=== PATIENT | male | born 1945 | race Caucasian/White ===

== ENCOUNTER 2024-03-17 11:28 | Inpatient (IN) ==
[~2024-03-17 11:28] MED LIST: NS 0.45% 1000 ml BAG 1,000 ML IV SCH; Naloxone 0.4 mg VIAL 0.4 mg/ml 1 ml VIAL IV PRN; fentaNYL 100 mcg/2 ml 50 MCG/ML VIAL IV PRN
[2024-03-17] MEDS ORDERED: ceFAZolin 2 GM PREMIX 2 GM/50 ML BAG ONE (11:50)
[2024-03-17 12:05] LABS: Rapid COVID-19 Molecular Undetected (Undetected)
[2024-03-17] MEDS: Buffered Lidocaine 1% SYRIN 1 ml INTRADERM ONE (12:10)
[2024-03-17] MEDS: Lactated Ringers 1000 ml BAG 1,000 ML IV SCH ×2 (12:11→20:40)
[2024-03-17] MEDS ORDERED: fentaNYL 100 mcg/2 ml 50 MCG/ML VIAL ONE (13:30)
[2024-03-17] MEDS ORDERED: Dexamethasone IV 4 MG/ML VIAL 1 ml VIAL ONE (13:31)
[2024-03-17] MEDS ORDERED: Midazolam 2 mg/2 ml VIAL 1 mg/ml 2 ml VIAL (2 mg) ONE (13:31)
[2024-03-17] MEDS ORDERED: Famotidine IV 10 MG/ML 2 ml VIAL (20 mg) ONE (13:31)
[2024-03-17] MEDS ORDERED: ROPIVACAINE 5 MG/ML 30 ML BTL (0.5%) ONE (13:31)
[2024-03-17] MEDS ORDERED: Ondansetron 4 mg VIAL 2 MG/ML 2 ml VIAL ONE ×2 (14:02→17:51)
[2024-03-17] MEDS ORDERED: Bupivacaine 0.5% SDV PF 30ML VIAL ONE (14:38)
[2024-03-17] MEDS ORDERED: Phenylephrine 40 mcg/mL 10mL (400mcg) SYRINGE ONE (14:50)
[2024-03-17] MEDS ORDERED: Propofol 10 MG/ML 20 ML BTL ONE (16:18)
[2024-03-17] MEDS ORDERED: Acetaminophen IV 1 GM/100ML 1,000 MG/100 ML BAG IV ONE (17:51)
[2024-03-17] MEDS: Ondansetron 4 mg VIAL 2 MG/ML 2 ml VIAL IV PRN ×2 (17:53→23:45)
[2024-03-17] MEDS: Acetaminophen IV 1 GM/100ML 1,000 MG/100 ML BAG IV ONE (17:53)
[2024-03-17] MEDS: Magnesium Hydroxide LIQ 30 ML UDC PO SCH (21:26)
[2024-03-17] MEDS: TACROLIMUS 0.03% TOPICAL SCH (22:43)
[2024-03-17] MEDS: ceFAZolin 2 GM PREMIX 2 GM/50 ML BAG IV SCH (23:34)
[2024-03-18] MEDS: Calcium Carb (TUMS) 500 mg CHEW TAB PO PRN (07:46)
[2024-03-18 08:49] LABS: Hematocrit 38.7 % (38-53); Hemoglobin 12.9 g/dL (13.2-16.3); Mean Platelet Volume 8.2 fL (7.5-11.2); Platelet Count 186 10^3/uL (150-450)
[2024-03-18] MEDS: Vitamin THERAPEUTIC TAB PO SCH (09:25)
[2024-03-18 09:36] LABS: Calcium 9.1 mg/dL (8.6-10.3); Creatinine, Serum 1.31 mg/dL (0.67-1.17); Potassium 4.4 mmol/L (3.5-5.0); eGFR CKD-EPI 56.4 (>60)
[2024-03-18] MEDS: Simethicone SUSP ORALSYR 66.66 MG/ML PO SCH (11:30)
[2024-03-18] MEDS: Scopolamine 1 mg/72hr PATCH TRANSDERM SCH (14:34)
[2024-03-18] MEDS: Cholecalciferol (VIT D3) 1,000 unit TAB PO SCH (15:54)
[2024-03-18] MEDS: Lactulose 30 ml UDC PO PRN (19:59)
[2024-03-18] MEDS: Morphine 2 MG/ML SYRINGE IV PRN (22:08)
[2024-03-18] MEDS: Ondansetron ODT 4 mg TAB 4 MG TAB PO PRN (22:08)
[2024-03-19] MEDS: Magnesium Hydroxide LIQ 30 ML UDC PO PRN (01:47)
[2024-03-19 07:08] LABS: Hematocrit 36.1 % (38-53); Hemoglobin 12.2 g/dL (13.2-16.3); Mean Platelet Volume 8.5 fL (7.5-11.2); Platelet Count 180 10^3/uL (150-450)
[2024-03-19 10:19] LABS: Calcium 9.2 mg/dL (8.6-10.3); Creatinine, Serum 1.22 mg/dL (0.67-1.17); Potassium 4.4 mmol/L (3.5-5.0); eGFR CKD-EPI 61.4 (>60)
[2024-03-20 14:19] LABS: Calcium 8.9 mg/dL (8.6-10.3); Creatinine, Serum 1.98 mg/dL (0.67-1.17); Potassium 4.1 mmol/L (3.5-5.0); eGFR CKD-EPI 34.4 (>60)
[2024-03-20] MEDS: Iodixanol 320 (CONTRAST) 100 ML SDV IV ONE (16:21)
[2024-03-20] MEDS: Lactated Ringers 1000 ml BAG 1,000 ML IV SCH (17:10)
[2024-03-20] MEDS: Lidocaine PATCH 5% PATCH TRANSDERM SCH (20:21)
[2024-03-21] MEDS: Albuterol/Ipratropium NEB.SOL (2.5/0.5 MG) 3 ML NEB.SOLN INH PRN (01:13)
[2024-03-21] MEDS: methylPREDNISolone SOD SUCC 40 mg/ml 1 ml VIAL IV ONE (01:16)
[2024-03-21] MEDS: Azithromycin 500 mg/250 ml NS 500 MG/250 ML BAG IVPB SCH (01:45)
[2024-03-21] MEDS: Iodixanol 320 (CONTRAST) 100 ML SDV IV SCH (04:24)
[2024-03-21] MEDS: Benzocaine/Butamben/Tetracain (CETACAINE - SINGLE USE) 5 gm TOPICAL ONE ×2 (05:30→10:30)
[2024-03-21 08:23] LABS: ABS Lymphocytes 0.2 10^3/uL (1.0-4.8); ABS Monocytes 0.4 10^3/uL (0.0-1.1); ABS Neutrophils 6.6 10^3/uL (1.5-7.6); ABS Nucleated RBC 0.01 10^3/ul; Hematocrit 33.3 % (38-53); Hemoglobin 11.1 g/dL (13.2-16.3); Lymphocyte % 2.5 %; Mean Corpuscular Hemoglobin 29.5 pg (27-33); Mean Corpuscular Hgb Conc 33.3 g/dL (31-36); Mean Corpuscular Volume 88.8 fL (80-97); Mean Platelet Volume 8.9 fL (7.5-11.2); Nucleated Red Blood Cells % 0.1 %/100WBC (0.0-0.8); Platelet Count 227 10^3/uL (150-450); Red Blood Count 3.76 10^6/uL (4.06-5.63); Red Cell Distribution Width 13.5 % (12-17); White Blood Count 7.2 10^3/uL (3.6-10.2)
[2024-03-21 08:32] LABS: Albumin 3.8 g/dL (3.2-5.2); Albumin/Globulin Ratio 1.4 (1-3); Calcium 8.8 mg/dL (8.6-10.3); Creatinine, Serum 2.32 mg/dL (0.67-1.17); Globulin 2.7 g/dL (2-4); Potassium 5.1 mmol/L (3.5-5.0); Total Bilirubin 0.8 mg/dL (0.2-1.0); Total Protein 6.5 g/dL (6.4-8.9); eGFR CKD-EPI 28.4 (>60)
[2024-03-21 08:51] LABS: Calcium 8.6 mg/dL (8.6-10.3); Creatinine, Serum 2.28 mg/dL (0.67-1.17); Potassium 5.1 mmol/L (3.5-5.0)
[2024-03-21 08:56] LABS: Hematocrit 32.9 % (38-53); Hemoglobin 11.1 g/dL (13.2-16.3); Platelet Count 224 10^3/uL (150-450)
[2024-03-21] MEDS: LORazepam 2 mg VIAL 1 ml IV PUSH ONE (08:57)
[2024-03-21] MEDS: Enoxaparin 40 MG/0.4 ML SYR SUBCUT SCH (08:59)
[2024-03-21] MEDS: Pantoprazole VIAL 40 MG VIAL IV SCH (08:59)
[2024-03-21] MEDS: Acetaminophen IV 1 GM/100ML 1,000 MG/100 ML BAG IV PRN (09:07)
[2024-03-21] MEDS ORDERED: Sulfur Hexaflouride MICROSPHR 25 MG VIAL IV PRN (09:55)
[2024-03-21] MEDS ORDERED: Phenol 1.4% Throat Spray BTL MT PRN (09:56)
[2024-03-21] MEDS ORDERED: Atropine 1 MG/ML INJ 1 ML VIAL IV PUSH PRN (10:42)
[2024-03-21 10:45] LABS: Urine Appearance Clear; Urine Bilirubin Negative (Negative); Urine Blood Negative (Negative); Urine Color Yellow; Urine Glucose Negative (Negative); Urine Ketones Negative (Negative); Urine Nitrite Negative (Negative); Urine Protein Trace (Negative); Urine Specific Gravity >1.050 (1.002-1.030); Urine Urobilinogen Negative (Negative); Urine pH 5.5 (5.0-8.0)
[2024-03-21] MEDS: Lidocaine 2% JELLY 6 ML Topical TOPICAL ONE ×2 (10:48→12:08)
[2024-03-21] MEDS: Atropine 0.1 MG/ML 10 ml SYR (1 mg) ONE (13:19)
[2024-03-21] MEDS: Neostigmine Methylsulfate 3 MG/3 ML SYRINGE IV ONE (13:24)
[2024-03-21] MEDS: Atropine 0.1 MG/ML 10 ml SYR (1 mg) IV PUSH ONE (15:13)
[2024-03-21] MEDS ORDERED: Dextrose 50% Syringe 50 ml 25 GM/50 ML SYRINGE IV PUSH PRN (17:06)
[2024-03-21 19:14] LABS: Calcium 8.4 mg/dL (8.6-10.3); Creatinine, Serum 2.93 mg/dL (0.67-1.17); eGFR CKD-EPI 21.5 (>60)
[2024-03-21] MEDS: NS 0.9% 500 ml BAG 500 ML IV ONE (19:54)
[2024-03-21 20:00] LABS: PCO2 Arterial 47 mmHg (35-45); PO2 Arterial 69 mmHg (80-100)
[2024-03-21] MEDS: Haloperidol 5 mg/ml SDV IV/IM 5 MG/ML AMP IV SLOW PU PRN (23:40)
[2024-03-22] MEDS: Haloperidol 5 mg/ml SDV IV/IM 5 MG/ML AMP ONE (00:08)
[2024-03-22] MEDS: Haloperidol 5 mg/ml SDV IV/IM 5 MG/ML AMP IV SLOW PU PRN (03:54)
[2024-03-22 04:50] LABS: Hemoglobin 10.5 g/dL (13.2-16.3); Mean Platelet Volume 7.9 fL (7.5-11.2); Platelet Count 201 10^3/uL (150-450)
[2024-03-22 05:48] LABS: Calcium 7.9 mg/dL (8.6-10.3); Creatinine, Serum 3.51 mg/dL (0.67-1.17); Potassium 5.1 mmol/L (3.5-5.0); eGFR CKD-EPI 17.3 (>60)
[2024-03-22] MEDS: Heparin 5000 UNITS/ML 1 mL VIAL SUBCUT SCH (08:26)
[2024-03-22] MEDS: NS 0.9% 1000 ml BAG 500 ML IV SCH (09:19)
[2024-03-22] MEDS: Mineral Oil ENEMA 118 ML/BOTTLE BOTTLE PR ONE (10:06)
[2024-03-22 10:48] LABS: Mean Corpuscular Hemoglobin 29.9 pg (27-33); Mean Corpuscular Hgb Conc 33.2 g/dL (31-36); Mean Corpuscular Volume 90.2 fL (80-97); Red Blood Count 3.48 10^6/uL (4.06-5.63); Red Cell Distribution Width 13.7 % (12-17); White Blood Count 4.1 10^3/uL (3.6-10.2)
[2024-03-22 11:00] LABS: Albumin 3.3 g/dL (3.2-5.2); Albumin/Globulin Ratio 1.3 (1-3); Direct Bilirubin 0.2 mg/dL (0.03-0.18); Globulin 2.5 g/dL (2-4); Indirect Bilirubin 0.5 mg/dL (0.3-1.0); Total Bilirubin 0.7 mg/dL (0.2-1.0); Total Protein 5.8 g/dL (6.4-8.9)
[2024-03-22] MEDS: Erythromycin Lactobionate IV 250 MG in NS 0.9% 100 ml BAG 100 ML IVPB SCH (11:22)
[2024-03-22] MEDS: Sulfur Hexaflouride MICROSPHR 25 MG VIAL IV PRN (11:48)
[2024-03-22] MEDS: Neostigmine Methylsulfate 3 MG/3 ML SYRINGE IV ONE (12:03)
[2024-03-22 15:06] LABS: Calcium 7.7 mg/dL (8.6-10.3); Creatinine, Serum 3.81 mg/dL (0.67-1.17); eGFR CKD-EPI 15.7 (>60)
[2024-03-22] MEDS ORDERED: Rocuronium 50 mg VIAL 10 mg/ml 5 ml VIAL (50 mg) ONE (15:35)
[2024-03-22] MEDS ORDERED: Etomidate 40 mg/20 ml (2 MG/ML) 20 ml VIAL (40 mg) ONE (15:35)
[2024-03-22] MEDS: Propofol 10 mg/ml 100 ML BTL 1,000 MG/100 ML BTL IV SCH (15:45)
[2024-03-22] MEDS: Propofol 10 mg/ml 100 ML BTL 1,000 MG/100 ML BTL ONE (16:22)
[2024-03-22] MEDS: Rocuronium 50 mg VIAL 10 mg/ml 5 ml VIAL (50 mg) ONE (16:23)
[2024-03-22] MEDS: NS 0.9% 500 ml BAG 500 ML IV ONE ×2 (16:36→19:53)
[2024-03-22] MEDS ORDERED: fentaNYL 100 mcg/2 ml 50 MCG/ML VIAL ONE (16:50)
[2024-03-22] MEDS ORDERED: Midazolam 10 mg/10 ml VIAL 1 mg/ml 10 ml VIAL (10 mg) ONE (16:50)
[2024-03-22] MEDS: Phenylephrine 40 mcg/mL 10mL (400mcg) SYRINGE IV PRN ×2 (16:59→17:23)
[2024-03-22] MEDS: Midazolam 5 mg/5 ml VIAL 1 mg/ml 5 ml VIAL (5 mg) ONE (17:02)
[2024-03-22] MEDS: Midazolam 5 mg/5 ml VIAL 1 mg/ml 5 ml VIAL (5 mg) IV SLOW PU ONE (17:02)
[2024-03-22] MEDS ORDERED: Phenylephrine 40 mcg/mL 10mL (400mcg) SYRINGE ONE (17:29)
[2024-03-22] MEDS: Norepinephrine 4 MG/250mL D5W 4,000 MCG/250 ML BAG IV SCH (17:34)
[2024-03-22] MEDS: Chlorhexidine MOUTHWASH 0.12% 15 ML UDC TOPICAL SCH (18:00)
[2024-03-22] MEDS: Norepinephrine 4 MG/250mL D5W 4,000 MCG/250 ML BAG IV ONE (18:56)
[2024-03-22] MEDS ORDERED: Phenylephrine 40 mcg/mL 10mL (400mcg) SYRINGE IV PRN (18:59)
[2024-03-22] MEDS: Phenylephrine 40 mcg/mL 10mL (400mcg) SYRINGE ONE ×3 (19:15→19:16)
[2024-03-22] MEDS ORDERED: Enoxaparin 30 MG/0.3 ML SYR SUBCUT SCH (21:00)
[2024-03-22] MEDS: DOPamine 800 MG/250 ML IVPREMX 800 MG/250 ML ML CENTR SCH (23:32)
[2024-03-23 05:03] LABS: ABS Eosinophils 0.2 10^3/uL (0.0-0.5); ABS Lymphocytes 0.3 10^3/uL (1.0-4.8); ABS Monocytes 0.3 10^3/uL (0.0-1.1); ABS Neutrophils 2.2 10^3/uL (1.5-7.6); Eosinophil % 6.5 %; Hematocrit 26.3 % (38-53); Hemoglobin 8.8 g/dL (13.2-16.3); Lymphocyte % 11.7 %; Mean Corpuscular Hemoglobin 29.9 pg (27-33); Mean Corpuscular Hgb Conc 33.7 g/dL (31-36); Mean Corpuscular Volume 88.8 fL (80-97); Mean Platelet Volume 7.7 fL (7.5-11.2); Nucleated Red Blood Cells % 0.1 %/100WBC (0.0-0.8); Platelet Count 178 10^3/uL (150-450); Red Blood Count 2.96 10^6/uL (4.06-5.63); Red Cell Distribution Width 13.3 % (12-17)
[2024-03-23 06:05] LABS: Calcium 7.1 mg/dL (8.6-10.3); Creatinine, Serum 3.27 mg/dL (0.67-1.17); Magnesium 3.1 mg/dL (1.9-2.7); Phosphorus 4.2 mg/dL (2.5-5.0); Potassium 4.1 mmol/L (3.5-5.0); eGFR CKD-EPI 18.8 (>60)
[2024-03-23] MEDS: Erythromycin Lactobionate IV 250 MG in NS 0.9% 100 ml BAG 100 ML IVPB SCH (06:08)
[2024-03-23] MEDS: cefTRIAXone 1 gm/50 mL D5W 1 GM/50 ML BAG IV SCH (08:52)
[2024-03-23 14:11] LABS: ABS Eosinophils 0.2 10^3/uL (0.0-0.5); ABS Lymphocytes 0.3 10^3/uL (1.0-4.8); ABS Monocytes 0.5 10^3/uL (0.0-1.1); ABS Neutrophils 4.9 10^3/uL (1.5-7.6); Eosinophil % 3.3 %; Hematocrit 29.4 % (38-53); Hemoglobin 9.8 g/dL (13.2-16.3); Lymphocyte % 5.3 %; Mean Corpuscular Hemoglobin 29.7 pg (27-33); Mean Corpuscular Hgb Conc 33.4 g/dL (31-36); Mean Platelet Volume 7.9 fL (7.5-11.2); Nucleated Red Blood Cells % 0.1 %/100WBC (0.0-0.8); Platelet Count 198 10^3/uL (150-450); Red Blood Count 3.31 10^6/uL (4.06-5.63); Red Cell Distribution Width 13.4 % (12-17)
[2024-03-23] MEDS: Polyethylene Glycol 3350 17 GM PACKET PO SCH (20:47)
[2024-03-23] MEDS: Albuterol/Ipratropium NEB.SOL (2.5/0.5 MG) 3 ML NEB.SOLN INH ONE (23:07)
[2024-03-24 04:55] LABS: ABS Eosinophils 0.2 10^3/uL (0.0-0.5); ABS Lymphocytes 0.5 10^3/uL (1.0-4.8); ABS Monocytes 0.5 10^3/uL (0.0-1.1); ABS Neutrophils 4.4 10^3/uL (1.5-7.6); Hematocrit 27.4 % (38-53); Hemoglobin 9.3 g/dL (13.2-16.3); Lymphocyte % 8.1 %; Mean Corpuscular Hemoglobin 30.2 pg (27-33); Mean Corpuscular Volume 88.8 fL (80-97); Mean Platelet Volume 7.4 fL (7.5-11.2); Nucleated Red Blood Cells % 0.1 %/100WBC (0.0-0.8); Platelet Count 186 10^3/uL (150-450); Red Blood Count 3.09 10^6/uL (4.06-5.63); Red Cell Distribution Width 13.8 % (12-17); White Blood Count 5.6 10^3/uL (3.6-10.2)
[2024-03-24 05:31] LABS: Calcium 7.7 mg/dL (8.6-10.3); Creatinine, Serum 1.82 mg/dL (0.67-1.17); Phosphorus 3.1 mg/dL (2.5-5.0); Potassium 3.7 mmol/L (3.5-5.0)
[2024-03-24] MEDS: Erythromycin Lactobionate IV 250 MG in NS 0.9% 100 ml BAG 100 ML IVPB SCH (11:46)
[2024-03-25 06:09] LABS: ABS Eosinophils 0.2 10^3/uL (0.0-0.5); ABS Lymphocytes 0.6 10^3/uL (1.0-4.8); ABS Monocytes 0.4 10^3/uL (0.0-1.1); ABS Neutrophils 4.6 10^3/uL (1.5-7.6); Hemoglobin 10.1 g/dL (13.2-16.3); Lymphocyte % 9.3 %; Mean Corpuscular Hemoglobin 30.2 pg (27-33); Mean Corpuscular Hgb Conc 33.7 g/dL (31-36); Mean Corpuscular Volume 89.7 fL (80-97); Mean Platelet Volume 7.5 fL (7.5-11.2); Platelet Count 193 10^3/uL (150-450); Red Blood Count 3.35 10^6/uL (4.06-5.63); Red Cell Distribution Width 13.4 % (12-17); White Blood Count 5.9 10^3/uL (3.6-10.2)
[2024-03-25 06:28] LABS: Calcium 7.9 mg/dL (8.6-10.3); Creatinine, Serum 1.34 mg/dL (0.67-1.17); Magnesium 2.7 mg/dL (1.9-2.7); Potassium 3.7 mmol/L (3.5-5.0); eGFR CKD-EPI 54.9 (>60)
[2024-03-25] MEDS: Polyethylene Glycol 3350 17 GM PACKET PO SCH (18:38)
[2024-03-25] MEDS ORDERED: Polyethylene Glycol 3350 17 GM PACKET PO PRN (23:10)
[2024-03-26 06:03] LABS: ABS Eosinophils 0.2 10^3/uL (0.0-0.5); ABS Lymphocytes 0.5 10^3/uL (1.0-4.8); ABS Monocytes 0.7 10^3/uL (0.0-1.1); Eosinophil % 2.5 %; Hematocrit 31.9 % (38-53); Hemoglobin 10.5 g/dL (13.2-16.3); Lymphocyte % 7.2 %; Mean Corpuscular Hemoglobin 29.5 pg (27-33); Mean Corpuscular Hgb Conc 32.9 g/dL (31-36); Mean Corpuscular Volume 89.7 fL (80-97); Mean Platelet Volume 7.5 fL (7.5-11.2); Platelet Count 256 10^3/uL (150-450); Red Blood Count 3.55 10^6/uL (4.06-5.63); Red Cell Distribution Width 13.3 % (12-17); White Blood Count 7.5 10^3/uL (3.6-10.2)
[2024-03-26 06:19] LABS: Calcium 8.1 mg/dL (8.6-10.3); Creatinine, Serum 1.17 mg/dL (0.67-1.17); Magnesium 2.4 mg/dL (1.9-2.7); Phosphorus 2.4 mg/dL (2.5-5.0); Potassium 3.8 mmol/L (3.5-5.0); eGFR CKD-EPI 64.6 (>60)
[2024-03-26] MEDS: Metoclopramide 5 MG/ML VIAL (10 mg) IV SLOW PU SCH ×2 (15:10→21:46)
[2024-03-26] MEDS: PPN (PERIPHERAL) 24 HR with D10W 1000 ml BAG 1,000 ML, Amino Acid Infusion 10% 850 ML, ... IV SCH (16:54)
[2024-03-26] MEDS ORDERED: Lorazepam PYXIS KEY PRN (18:21)
[2024-03-26] MEDS: Labetalol IV 5 MG/ML 20 ml VIAL IV PUSH ONE (18:45)
[2024-03-26 19:43] LABS: ALT 49 U/L (7-52); Albumin 3.4 g/dL (3.2-5.2); Albumin/Globulin Ratio 1.4 (1-3); Alkaline Phosphatase 61 U/L (35-149); Anion Gap 12 mmol/L (2-16); Blood Urea Nitrogen 27 mg/dL (6-24); CO2 Carbon Dioxide 24 mmol/L (22-32); Calcium 8.3 mg/dL (8.6-10.3); Chloride 105 mmol/L (101-111); Cholesterol 94 mg/dL; Creatinine, Serum 1.06 mg/dL (0.67-1.17); Globulin 2.4 g/dL (2-4); Glucose 148 mg/dL (70-100); Prealbumin 8 mg/dL (18-38); Sodium 141 mmol/L (135-145); Total Bilirubin 0.8 mg/dL (0.2-1.0); Total Protein 5.8 g/dL (6.4-8.9); Triglycerides 167 mg/dL; eGFR CKD-EPI 72.7 (>60)
[2024-03-26] MEDS: hydrALAZINE 20 mg/ml 1 ML Vial IV IV SLOW PU ONE (20:13)
[2024-03-26] MEDS: hydrALAZINE 20 mg/ml 1 ML Vial IV IV SLOW PU PRN (21:49)
[2024-03-26 22:33] LABS: Magnesium 2.1 mg/dL (1.9-2.7); Phosphorus 2.1 mg/dL (2.5-5.0)
[2024-03-26] MEDS: LORazepam 2 mg VIAL 1 ml IV PUSH PRN (23:50)
[2024-03-27] MEDS ORDERED: Lorazepam PYXIS KEY PRN (08:08)
[2024-03-27 09:48] LABS: Calcium 8.7 mg/dL (8.6-10.3); Creatinine, Serum 0.98 mg/dL (0.67-1.17); Phosphorus 1.6 mg/dL (2.5-5.0); Potassium 3.6 mmol/L (3.5-5.0); eGFR CKD-EPI 79.9 (>60)
[2024-03-27] MEDS ORDERED: hydrALAZINE 20 mg/ml 1 ML Vial IV IV SLOW PU SCH (11:00)
[2024-03-27] MEDS: hydrALAZINE 20 mg/ml 1 ML Vial IV IV SLOW PU SCH (12:14)
[2024-03-27] MEDS: Potassium Phosphate IV 15 MMOL in NS 0.9% 250 ml 250 ML IVPB ONE (12:17)
[2024-03-27] MEDS: Labetalol IV 5 MG/ML 20 ml VIAL IV PUSH SCH (16:10)
[2024-03-27] MEDS: LORazepam 2 mg VIAL 1 ml IV PUSH PRN (22:29)
[2024-03-28 06:01] LABS: Hematocrit 32.5 % (38-53); Hemoglobin 10.8 g/dL (13.2-16.3); Mean Corpuscular Hemoglobin 29.8 pg (27-33); Mean Corpuscular Hgb Conc 33.2 g/dL (31-36); Mean Corpuscular Volume 89.9 fL (80-97); Mean Platelet Volume 7.1 fL (7.5-11.2); Platelet Count 378 10^3/uL (150-450); Red Blood Count 3.61 10^6/uL (4.06-5.63); Red Cell Distribution Width 13.9 % (12-17); White Blood Count 14.8 10^3/uL (3.6-10.2)
[2024-03-28 07:23] LABS: Albumin 3.5 g/dL (3.2-5.2); Albumin/Globulin Ratio 1.6 (1-3); Globulin 2.2 g/dL (2-4); Magnesium 1.9 mg/dL (1.9-2.7); Phosphorus 2.9 mg/dL (2.5-5.0); Potassium 3.7 mmol/L (3.5-5.0); Total Bilirubin 0.7 mg/dL (0.2-1.0); Total Protein 5.7 g/dL (6.4-8.9)
[2024-03-28 07:52] LABS: ABS Basophils 0.1 10^3/uL (0.0-0.1); ABS Eosinophils 0.5 10^3/uL (0.0-0.5); ABS Lymphocytes 0.8 10^3/uL (1.0-4.8); ABS Monocytes 1.2 10^3/uL (0.0-1.1); ABS Neutrophils 12.3 10^3/uL (1.5-7.6); ABS Nucleated RBC 0.01 10^3/ul; Eosinophil % 3.4 %; Lymphocyte % 5.6 %
[2024-03-28] MEDS: Polyethylene Glycol 3350 17 GM PACKET PO ONE (12:32)
[2024-03-28 18:32] LABS: Urine Appearance Turbid; Urine Bilirubin Negative (Negative); Urine Blood 1+ (Negative); Urine Color Yellow; Urine Glucose 1+ (>=70 mg/dL) (Negative); Urine Ketones Negative (Negative); Urine Nitrite Negative (Negative); Urine Protein 1+ (>=30 mg/dL) (Negative); Urine Specific Gravity 1.022 (1.002-1.030); Urine Urobilinogen Negative (Negative); Urine pH 5.5 (5.0-8.0)
[2024-03-28 18:34] LABS: Urine Bacteria Absent /HPF (Absent); Urine Granular Casts Present /LPF (Absent); Urine Red Blood Cell 3+(>10/hpf) /HPF (0-Trace); Urine White Blood Cell 1+(6-10/hpf) /HPF (0-Trace)
[2024-03-28] MEDS: Tacrolimus 0.03% OINT(NF) 30 GM TUBE TOPICAL SCH (22:06)
[2024-03-29 07:06] LABS: Albumin 3.3 g/dL (3.2-5.2); Albumin/Globulin Ratio 1.5 (1-3); Calcium 8.8 mg/dL (8.6-10.3); Creatinine, Serum 0.93 mg/dL (0.67-1.17); Globulin 2.2 g/dL (2-4); Magnesium 1.7 mg/dL (1.9-2.7); Phosphorus 2.9 mg/dL (2.5-5.0); Potassium 3.6 mmol/L (3.5-5.0); Total Bilirubin 0.7 mg/dL (0.2-1.0); Total Protein 5.5 g/dL (6.4-8.9); eGFR CKD-EPI 85.1 (>60)
[2024-03-29 07:34] LABS: Hematocrit 31.9 % (38-53); Hemoglobin 10.5 g/dL (13.2-16.3); Mean Corpuscular Hemoglobin 29.5 pg (27-33); Mean Corpuscular Hgb Conc 32.9 g/dL (31-36); Mean Corpuscular Volume 89.6 fL (80-97); Mean Platelet Volume 7.8 fL (7.5-11.2); Platelet Count 342 10^3/uL (150-450); Red Blood Count 3.56 10^6/uL (4.06-5.63); White Blood Count 12.8 10^3/uL (3.6-10.2)
[2024-03-29 07:54] LABS: ABS Basophils 0.1 10^3/uL (0.0-0.1); ABS Eosinophils 0.4 10^3/uL (0.0-0.5); ABS Lymphocytes 0.8 10^3/uL (1.0-4.8); ABS Monocytes 1.1 10^3/uL (0.0-1.1); ABS Neutrophils 10.5 10^3/uL (1.5-7.6); Eosinophil % 3.1 %; Lymphocyte % 6.4 %
[2024-03-29] MEDS ORDERED: PPN (PERIPHERAL) 24 HR with D10W 1000 ml BAG 1,000 ML, Amino Acid Infusion 10% 850 ML, ... IV SCH (17:00)
[2024-03-29] MEDS: Magnesium Sulfate 2 gm BAG 2 GM/50 ML BAG IVPB ONE (17:36)
[2024-03-29] MEDS: KCL 20 MEQ/100 ML IVPREMIX 20 MEQ/100 ML BAG IV ONE (17:37)
[2024-03-29] MEDS: Erythromycin Lactobionate IV 250 MG in NS 0.9% 100 ml BAG 100 ML IVPB SCH (20:35)
[2024-03-30 06:34] LABS: ABS Basophils 0.1 10^3/uL (0.0-0.1); ABS Eosinophils 0.3 10^3/uL (0.0-0.5); ABS Lymphocytes 0.8 10^3/uL (1.0-4.8); ABS Neutrophils 7.9 10^3/uL (1.5-7.6); Hematocrit 28.5 % (38-53); Hemoglobin 9.5 g/dL (13.2-16.3); Lymphocyte % 7.7 %; Mean Corpuscular Hemoglobin 30.1 pg (27-33); Mean Corpuscular Hgb Conc 33.2 g/dL (31-36); Mean Corpuscular Volume 90.6 fL (80-97); Mean Platelet Volume 7.3 fL (7.5-11.2); Platelet Count 310 10^3/uL (150-450); Red Blood Count 3.15 10^6/uL (4.06-5.63); Red Cell Distribution Width 14.3 % (12-17)
[2024-03-30 07:03] LABS: Calcium 8.6 mg/dL (8.6-10.3); Potassium 3.8 mmol/L (3.5-5.0)
[2024-03-30] MEDS ORDERED: Dextrose 50% Syringe 50 ml 25 GM/50 ML SYRINGE IV PUSH PRN (21:49)
[2024-03-31] MEDS: Erythromycin Lactobionate IV 250 MG in NS 0.9% 100 ml BAG 100 ML IVPB SCH (05:43)
[2024-03-31] MEDS: ceFAZolin 2 GM PREMIX 2 GM/50 ML BAG IV SCH (15:50)
[2024-04-01 07:39] LABS: Calcium 8.9 mg/dL (8.6-10.3); Creatinine, Serum 1.02 mg/dL (0.67-1.17); Potassium 3.4 mmol/L (3.5-5.0); eGFR CKD-EPI 76.2 (>60)
[2024-04-01 09:38] LABS: ABS Eosinophils 0.2 10^3/uL (0.0-0.5); ABS Lymphocytes 0.7 10^3/uL (1.0-4.8); ABS Monocytes 0.9 10^3/uL (0.0-1.1); ABS Neutrophils 8.3 10^3/uL (1.5-7.6); Eosinophil % 2.1 %; Hematocrit 29.6 % (38-53); Hemoglobin 9.8 g/dL (13.2-16.3); Mean Corpuscular Hemoglobin 30.3 pg (27-33); Mean Corpuscular Hgb Conc 32.9 g/dL (31-36); Mean Platelet Volume 7.7 fL (7.5-11.2); Platelet Count 329 10^3/uL (150-450); Red Blood Count 3.22 10^6/uL (4.06-5.63); Red Cell Distribution Width 14.5 % (12-17); White Blood Count 10.1 10^3/uL (3.6-10.2)
[2024-04-01 10:47] VITALS: BP 143/61
== END 2024-04-01 15:02 | disposition home or self-care (01) | DRG 469 ==
LOC: OR 11:28 → SSU 11:28 → SUATTDRO 03-19 12:00 → ICU 03-21 05:21 → SSU 03-24 14:15 → MEDTELE 03-28 10:26
PROVIDERS: ADMIT Orthopaedic Surgery Adult Reconstructive Orthopaedic Surgery; ATTEND Student in an Organized Health Care Education/Training Program